=== PATIENT | female | born 1925 | race Two or more races ===

== ENCOUNTER 2017-04-17 17:10 | Emergency (ER) | payer MEDICARE, MEDICAID ==
[~2017-04-17] VITALS: Ht 162.6 cm; Wt 68.9 kg
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
[2017-04-17] MEDS ORDERED: DEXTROSE 50%-WATER 50 ML DISP.SYRIN ONE (17:18)
--- NOTE | 2017-04-17 17:19 | NUR ---
PT WENT TO CT SCAN
[2017-04-17 17:25] LABS: BASOPHILS # (AUTO) 0.1 /CMM (0.0-0.2); BASOPHILS % (AUTO) 0.7 % (0.0-2.0); EOSINOPHILS # (AUTO) 0.2 /CMM (0.0-0.7); EOSINOPHILS % (AUTO) 3.3 % (0.0-6.0); HEMATOCRIT 39 % (33-45); HEMOGLOBIN 13.1 g/dL (11.5-14.8); LYMPHOCYTES # (AUTO) 1.9 /CMM (0.8-4.8); LYMPHOCYTES % (AUTO) 26.1 % (20.0-44.0); MEAN CORPUSCULAR HEMOGLOBIN 27 PG (26.0-33.0); MEAN CORPUSCULAR HGB CONC 33 g/dl (31.0-36.0); MEAN CORPUSCULAR VOLUME 80 fL (82-100); MONOCYTES # (AUTO) 0.4 /CMM (0.1-1.30); MONOCYTES % (AUTO) 6.2 % (2.0-12.0); NEUTROPHILS # (AUTO) 4.6 /CMM (1.8-8.9); NEUTROPHILS % (AUTO) 63.7 % (43.0-81.0); PLATELET COUNT (AUTO) 332 /CMM (150-450); RDW COEFFICIENT OF VARIATION 14.9 (11.5-15.0); RED BLOOD CELL COUNT(AUTO) 4.94 MIL/uL (4.0-5.2); WHITE BLOOD COUNT (AUTO) 7.2 K/uL (4.3-11.0)
[2017-04-17] MEDS ORDERED: DEXTROSE 50%-WATER 50 ML DISP.SYRIN IVP ONE (17:30)
[2017-04-17 17:39] LABS: INR 0.9 (0.87-1.13)
[2017-04-17 17:41] LABS: ALANINE AMINOTRANSFERASE 17 U/L (12-78); ALBUMIN 3.6 g/dL (3.4-5.0); ALKALINE PHOSPHATASE 65 U/L (46-116); ASPARTATE AMINOTRANSFERASE 17 U/L (15-37); BILIRUBIN,TOTAL 0.2 mg/dL (0.2-1.0); CALCIUM, SERUM 9.2 mg/dL (8.5-10.1); CARBON DIOXIDE 29 mmol/L (21-32); CHLORIDE 105 mmol/L (98-107); CREATININE 1.1 mg/dL (0.6-1.3); POTASSIUM 4.1 mmol/L (3.5-5.1); SODIUM SERUM 139 mmol/L (136-145); UREA NITROGEN, BLOOD 25 mg/dL (7-18)
[2017-04-17 17:43] LABS: TROPONIN I < 0.017 ng/mL (0.00-0.056)
[2017-04-17 17:46] LABS: ALCOHOL, BLOOD < 3 mg/dL (0-0); GLUCOSE 35 mg/dL (74-106)
[2017-04-17 18:10] LABS: THYROID STIMULATING HORMONE 1.667 uIU/mL (0.358-3.74)
--- NOTE | 2017-04-17 18:23 | NUR ---
FOOD TRAY SERVED AT
--- NOTE | 2017-04-17 18:44 | NUR ---
REPORT GIVEN TO WINDY PEREZ FOR LIZETTE.
--- NOTE | 2017-04-17 18:55 | NUR ---
Patient is resting in er bed, no distress noted. ER bed in low position, side rails up. awaiting for MS bed assignment, will continue to monitor. Per MD Tanner next blood sugar check will be at 1920, is BG normal patient will go home
[2017-04-17 19:26] VITALS: BP 224/110
--- NOTE | 2017-04-17 19:26 | NUR ---
Patient discharged to home in stable condition. Written and verbal after care instructions given. Patient verbalizes understanding of instruction.IV removed. Catheter intact and site benign. Pressure and 4x4 applied to site. No bleeding noted. pt ambulatory with a steady gait VITAL SIGNS WITHIN NORMAL LIMITS.
== END 2017-04-17 19:27 | disposition home or self-care (01) ==
LOC: ER 17:13
DX: G93.40 Encephalopathy, unspecified (principal); R00.1 Bradycardia, unspecified; E11.649 Type 2 diabetes mellitus with hypoglycemia without coma
CPT/HCPCS: 36415; 70450-TC; 71045-TC; 80048-TC; 80076-TC; 82962-TC; 83605-TC; 84443-TC; 84484-TC; 85025-TC; 85730-TC; A4606; G0480; Z7610